=== PATIENT | female | born 2000 | race American Indian/Alaskan Native ===

== ENCOUNTER 2024-07-19 00:25 | Emergency (ER) | payer MEDICAID, SELFPAY ==
[2024-07-19 00:47] VITALS: BP 167/80; PULSE 60; RESP 18; TEMP 37.3; O2SAT 99; BMI 42.8
--- NOTE | 2024-07-19 01:13 | PD.EDEXREM ---
ED Extremity Problem RME/HPI General Chief complaint: Extremity Problem,Nontraumatic Stated complaint: LEFT ARM PAIN Time Seen by Provider: 07/19/24 01:06 Arrival date/time: 07/19/24 00:25 23F with no significant PMH presents to ED with several days of L shoulder pain/soreness that got worse yesterday. Pain is better when she takes pressure off shoulder by lifting elbow. Patient denies fall/trauma. Limitations: no limitations Related Data Allergies Allergy/AdvReac Type Severity Reaction Status Date / Time No Known Allergies Allergy Verified 07/19/24 00:26 Review of Systems Review of Systems Systems Reviewed: All systems reviewed, normal except as documented Constitutional Constitutional: Reports system reviewed and no additional complaints, except as documented, Denies fever(s) and Denies headache(s) ENT Ears, Nose, Mouth, and Throat: Denies disequilibrium and Denies headache(s) Cardiovascular Cardiovascular: Reports system reviewed and no additional complaints, except as documented, Denies chest pain and Denies dyspnea Respiratory Respiratory: Reports system reviewed and no additional complaints, except as documented, Denies cough and Denies dyspnea Gastrointestinal Gastrointestinal: Reports system reviewed and no additional complaints, except as documented, Denies abdominal pain, Denies nausea and Denies vomiting Musculoskeletal Musculoskeletal: Reports as per HPI and Reports arthralgias Neurologic Neurologic: Reports system reviewed and no additional complaints, except as documented, Denies confusion, Denies disequilibrium and Denies headache(s) Psychiatric Psychiatric: Denies confusion Past Medical History Social History SMOKING STATUS: Never smoker ED Exam General Limitations: Present no limitations General appearance: Present alert and in no apparent distress Head Head exam: Present atraumatic Eye Eye exam: Present normal appearance, PERRL and EOMI ENT ENT exam: Present normal exam, normal oropharynx and mucous membranes moist Neck Neck exam: Present normal inspection, full ROM and trachea midline Chest Chest inspection: Present normal inspection and symmetric chest wall rise Respiratory Respiratory exam: Present normal lung sounds bilaterally Cardiovascular Cardiovascular exam: Present regular rate, normal rhythm and normal heart sounds Abdominal Exam Abdominal exam: Present soft and normal bowel sounds Expanded Upper Extremity Exam Shoulder exam: Absent full ROM (L) Back Exam Back exam: Present normal inspection and full ROM Neurological Exam Neurological exam: Present alert, oriented X3 and CN II-XII intact Psychiatric Psychiatric exam: Present normal affect and normal mood Skin Skin exam: Present warm, dry, intact and normal color Course Quality Measures none Orders Category Date Time Status sling [Splint / Immobilizer] STAT Care 07/19/24 01:07 Active Naproxen [Naprosyn] Med 07/19/24 01:07 Discontinued 500 mg PO X1 ONE Vital Signs Vital signs: Vital Signs Temperature 99.2 F 07/19/24 00:47 Pulse Rate 60 07/19/24 00:47 Respiratory Rate 18 07/19/24 00:47 Blood Pressure 167/80 H 07/19/24 00:47 Pulse Oximetry (%) 99 07/19/24 00:47 Oxygen Delivery Method Room Air 07/19/24 00:47 O2 at 99% on RA and WNLs Extremity Problem MDM Narrative MDM Narrative:: 23F with no significant PMH presents to ED with several days of L shoulder pain/soreness that got worse yesterday. Pain is better when she takes pressure off shoulder by lifting elbow. Patient denies fall/trauma. Physical exam reveals normal LUE exam. Pain is with ROM, which is limited. Patient is afebrile, calm, and alert. Likely tendonitis. Given sling, meds, and career guidance counselor. Patient data External records reviewed:: [facility] previous records Clinical information provided by:: patient Social determinants that could affect healthcare access:: none Patient has the following chronic illnesses:: none How is presenting disease/condition affected by chronic disease/condition?: no chronic disease Evaluation data The following diagnostics were reviewed and interpreted by me:: other (specify) (none) Lab and/or radiology exams considered but not ordered:: not ordered Interpretation Summary: n/a Medications / Prescriptions Medications or Prescriptions considered but not ordered:: ordered Medication administrations:: Medication Administration History Discontinued Medications Naproxen (Naproxen 250 Mg Tablet) 500 mg PO X1 ONE Stop: 07/19/24 01:08 above Consultations Consultation(s) initiated? (list below): No Diagnosis Extremity Problem Differential Diagnosis: herpes zoster, gout, cellulitis, superficial thrombophlebitis, deep venous thrombosis of upper extremity, lower extremity edema, deep vein thrombosis of lower extremity and other (tendonitis) Most likely diagnosis given after review of the tests above:: tendonitis Admission Indicated Admission indicated?: not indicated Admission Request Was there a request for admission?: No Disposition Plan Disposition Plan: Discharge Discharge Attestation Discharge Attestation: The patient and all family members were given an opportunity to ask questions and understood the discharge instructions. Discharge instructions specifically effects, indications for sooner follow up or return to the emergency department, and the expected course of current diagnosis. Patient condition: Stable Discharge Plan Plan Patient Disposition: HOME (Self Care) Discharge Disposition comment: Stable Problem List Clinical Impression: Tendonitis Patient/Caregiver Discharge Instructions Education Materials: ED Tendonitis Additional Instructions: Please follow-up with PCP within 24-48 hours and return immediately if symptoms worsen. If problem persists, recommend outpatient PT and/or MRI follow-up. In the meantime, rest, use ice/heat, and/or compression. NSAIDs tend to work better for this type of pain. Print Language: Welsh Stand Alone Forms: Patient Portal Info Letter CHARLEY/ELLY Supervising Physician CHARLEY/ELLY Supervising Physician: Dr. De Jesus
[2024-07-19] MEDS: NAPROXEN 250 MG TABLET 500 MG PO (01:25)
== END 2024-07-19 01:34 | disposition home or self-care (01) ==
LOC: SERX 01:37
PROVIDERS: Emergency Provider Emergency Medicine; PCP Physician Assistant
DX: M77.8 Other enthesopathies, not elsewhere classified (principal)
CPT/HCPCS: 99282; A4565; A9270

== ENCOUNTER → 2024-09-21 | Outpatient (CLI) | payer MEDICAID, SELFPAY ==
--- NOTE | 2024-09-21 09:00 | XR_ITS ---
MRI shoulder, left, without contrast. Date and time: September 21, 2024 1001 hours INDICATIONS: Decreased range of motion and shoulder pain beginning July 18, 2024 Technique: Multiple axial, sagittal and coronal sections of the shoulder have been obtained. Siemens high-resolution 1.5 [place] MRI scanner is utilized. Axial fat-suppressed sections, TR 2350, TE 18 T2-weighted coronal fat-saturated images, TR 3500, TE 7100 T1-weighted coronal images, TR 500, TE 15 T2-weighted sagittal fat-saturated images, TR 3500, TE 57 T1-weighted sagittal sections, TR 504, TE 13. Findings: Supraspinatus tendon insertion is intact. Infraspinatus tendon insertion is intact. Subscapularis insertion is intact. Subscapularis bursa is not seen. Long head of the biceps is in the bicipital groove. No definite tear of the biceps superior labral anchor is seen. Retraction of the musculotendinous junction of the rotator cuff is not seen . Tendinosis pattern is not seen. Distance between the acromium and humeral head is 5.9 mm Atrophy of the supraspinatus muscle is mild . Atrophy of the infraspinatus muscle is none seen. Sagittal sections demonstrate a horizontal acromion. Acromioclavicular joint demonstrates no arthritic change. Osacromiale is not identified. Labral margins intact. Bony glenoid fossa on the sagittal sections does not demonstrate osseous defect. Occult fracture or area of avascular necrosis is not seen. Acromioclavicular joint separation is not visible. Defect in the posterolateral margin of the humeral head is not seen Impression: Rotator cuff and labral margins intact
== END | disposition home or self-care (01) ==
LOC: SMRI 09:06
PROVIDERS: PCP Nurse Practitioner Family; Referring Provider Nurse Practitioner Family; Visit Provider Nurse Practitioner Family
DX: M25.512 Pain in left shoulder (principal); M77.8 Other enthesopathies, not elsewhere classified
CPT/HCPCS: 73221